=== PATIENT | female | born 1950 | race Caucasian/White ===

== ENCOUNTER 2017-02-27 13:17 | Emergency (ER) | payer OTHER ==
[~2017-02-27 13:17] MED LIST: CLARITIN10 MG PO
== END 2017-02-27 14:12 | disposition home or self-care (01) ==
LOC: ER1 13:17
DX: S50.12XA Contusion of left forearm, initial encounter (principal); S60.222A Contusion of left hand, initial encounter; S60.512A Abrasion of left hand, initial encounter; I10 Essential (primary) hypertension; E78.5 Hyperlipidemia, unspecified; F17.210 Nicotine dependence, cigarettes, uncomplicated; Z88.1 Allergy status to other antibiotic agents; W19.XXXA Unspecified fall, initial encounter; Y92.830 Public park as the place of occurrence of the external cause; Z23 Encounter for immunization
CPT/HCPCS: 73090; 73130; 90471; 90714; 99283

== ENCOUNTER → 2022-04-07 | Outpatient (CLI) | payer OTHER | LOC: KOH-I 13:34 | DX: U07.1 COVID-19 (principal) | CPT/HCPCS: 71046 ==